=== PATIENT | female | born 1950 | race Caucasian/White ===

== ENCOUNTER → 2019-10-05 | Outpatient (CLI) | payer MEDICARE, OTHER ==
--- NOTE | 2019-10-05 16:54 | Diagnostic Imaging Report ---
PROCEDURE: CT abdomen and pelvis without contrast. TECHNIQUE: Multiple contiguous axial images were obtained through the abdomen and pelvis without the use of intravenous contrast. Auto Exposure Controls were utilized during the CT exam to meet ALARA standards for radiation dose reduction. INDICATION: Bilateral flank pain and hematuria. Patient has history of kidney stones. COMPARISON: No prior CT studies are available for comparison. FINDINGS: The lung bases are clear of acute infiltrates. There is some minimal scarring or atelectasis in the lingula. There is a large hiatal hernia. The liver and gallbladder are unremarkable. No biliary ductal dilatation is seen. Pancreas and spleen are unremarkable. No adrenal mass is detected. There is a tiny nonobstructing calculus in the lower pole of the left kidney. Right kidney is without evidence of calculi. No definite ureteral calculi or hydronephrosis is seen. Aorta and iliac vessels are heavily calcified but nonaneurysmal. The small and large bowel loops are normal caliber. There is no obstruction. There is diverticulosis of the sigmoid but no evidence of acute diverticulitis. Bladder and uterus are unremarkable. There is no free fluid or fluid collection identified. There is a tiny fat-containing umbilical hernia. Bony structures are nonacute. IMPRESSION: 1. Large hiatal hernia. 2. Tiny nonobstructing left renal calculus. No definite ureteral calculi or hydronephrosis is seen. Uncomplicated diverticulosis. Dictated by: Dictated on workstation # [id number]
--- NOTE | 2019-10-05 17:40 | Diagnostic Imaging Report ---
INDICATION: Flank pain. FINDINGS: No definite radiopaque urolithiasis. There are degenerative changes to the spine as well as pubic symphysis and bilateral hips. IMPRESSION: No convincing radiopaque urinary tract stones. Dictated by: Dictated on workstation # [id number]
== END ==
LOC: RAD 16:03
PROVIDERS: ATTEND Urology
DX: K44.9 Diaphragmatic hernia without obstruction or gangrene (principal); N20.0 Calculus of kidney; K57.30 Diverticulosis of large intestine without perforation or abscess without bleeding; R10.9 Unspecified abdominal pain; Z87.442 Personal history of urinary calculi
CPT/HCPCS: 74018; 74176